=== PATIENT | female | born 1965 | race American Indian/Alaskan Native ===

== ENCOUNTER 2021-11-07 09:14 | Day surgery (SDC) | payer OTHER ==
[~2021-11-07 09:14] MED LIST: Scopolamine 1.5 MG Transdermal Patch ONE
[2021-11-07] MEDS ORDERED: Ondansetron 4 MG/2 ML SDV IVPUSH PRN (09:28)
[2021-11-07] MEDS ORDERED: Albuterol 0.083% 2.5 MG/3 ML Neb Soln NEB PRN (09:28)
[2021-11-07] MEDS ORDERED: Morphine 4 MG/ML VIAL IVPUSH PRN ×2 (09:28→15:07)
[2021-11-07] MEDS ORDERED: fentaNYL 100 MCG/2 ML SDV IVPUSH PRN (09:28)
[2021-11-07] MEDS ORDERED: Naloxone 0.4 MG/ML SDV IVPUSH PRN (09:28)
[2021-11-07] MEDS ORDERED: HYDROmorphone 1 MG/ML Syringe IVPUSH PRN (09:28)
[2021-11-07] MEDS ORDERED: Metoclopramide 10 MG/2 ML SDV IVPUSH PRN (09:28)
[2021-11-07] MEDS ORDERED: Bupivacaine 0.25% 10 ML SDV ONE (10:07)
[2021-11-07 10:46] LABS: BLOOD UREA NITROGEN,BUN 15 mg/dL (7.0-18.0); CARBON DIOXIDE,CO2 24.3 mmol/L (21.0-32.0); CHLORIDE,CL 101 mmol/L (98-107); GLUCOSE RANDOM 288 mg/dL (74-106); POTASSIUM,K 3.9 mmol/L (3.5-5.1); SODIUM,NA 135 mmol/L (136-145)
[2021-11-07] MEDS ORDERED: Midazolam 1 MG/ML 2 ML SDV ONE (11:30)
[2021-11-07] MEDS ORDERED: Rocuronium Bromide 50 MG/5 ML Syringe ONE (11:30)
[2021-11-07] MEDS ORDERED: Ondansetron 4 MG/2 ML SDV ONE (11:30)
[2021-11-07] MEDS ORDERED: Sugammadex Sodium 200 MG/2 ML VIAL ONE (11:30)
[2021-11-07] MEDS ORDERED: fentaNYL 100 MCG/2 ML SDV ONE ×2 (11:30→13:00)
[2021-11-07] MEDS ORDERED: Propofol 200 MG/20 ML SDV ONE (11:30)
[2021-11-07] MEDS ORDERED: Ketorolac 30 MG/ML SDV ONE (12:53)
[2021-11-07 14:34] VITALS: BP 136/78; PULSE 69
[2021-11-07] MEDS ORDERED: Acetaminophen/oxyCODONE 325-5 MG Tab PO PRN ×2 (15:07)
== END 2021-11-07 15:23 | disposition home or self-care (01) ==
LOC: MW.SDS 09:14
PROVIDERS: ATTEND Obstetrics & Gynecology
DX: N70.11 Chronic salpingitis (principal); N83.8 Other noninflammatory disorders of ovary, fallopian tube and broad ligament; D25.9 Leiomyoma of uterus, unspecified; N84.0 Polyp of corpus uteri; I10 Essential (primary) hypertension; E11.9 Type 2 diabetes mellitus without complications; K21.9 Gastro-esophageal reflux disease without esophagitis; J45.909 Unspecified asthma, uncomplicated; E66.9 Obesity, unspecified; Z79.82 Long term (current) use of aspirin; Z79.899 Other long term (current) drug therapy; Z79.4 Long term (current) use of insulin
CPT/HCPCS: 36415; 58558; 58661; 80053; 81025; 82947; 85025; 86850; 86900; 86901; A9270; J0131; J0330; J1885; J2250; J2405; J2704; J3010; J3490; 00952